=== PATIENT | female | born 1995 | race Caucasian/White ===

== ENCOUNTER → 2016-11-19 | Outpatient (CLI) | payer OTHER ==
[~2016-11-19] MED LIST: DOCU100C37 PO; HYDR-3454 PO; IBUP-1780 PO; OXYC-465 PO
[2016-11-19 10:28] LABS: PROTEIN/CREATININE RATIO 0.16
== END ==
LOC: LABNPT 10:04
PROVIDERS: ATTEND Obstetrics & Gynecology
DX: O28.8 Other abnormal findings on antenatal screening of mother (principal)
CPT/HCPCS: 82570; 84156

== ENCOUNTER 2016-11-20 06:55 | Inpatient (IN) | payer BC, OTHER ==
[2016-11-20] VITALS (52 sets, daily range): BP systolic 110–157; BP diastolic 58–96
[~2016-11-20] VITALS: Ht 160 cm; Wt 109.8 kg
[~2016-11-20 06:55] MED LIST changes: -DOCU100C37 PO; -IBUP-1780 PO; -OXYC-465 PO
[2016-11-20] MEDS ORDERED: OXYTOCIN/NORMAL SALINE 500 ML IV SCH ×2 (07:40→18:38)
--- NOTE | 2016-11-20 07:41 | OB Bishop Score ---
Zuleta Score 9 ENRICO LOCKE MD Nov 20, 2016 7:41 am
--- NOTE | 2016-11-20 07:45 | History & Physical ---
History and Physical Date Seen by Provider: Nov 20, 2016 Time Seen by Provider: 07:42 this patient is a 20-year-old G1 white female with an EDC of 6 1117/39-2/7 weeks ' gestation. She is admitted for elective induction of labor. She's had no problems with this . GBS culture was negative after 35 weeks gestation. She denies rupture membranes or bleeding. She is having occasional contractions that she feels. She feel baby moving. allergies are to penicillin based on a family history of penicillin. Patient reports she has never taken penicillin medications are vitamins Medical social and surgical histories are per the antepartum record HEENT exam is normal Neck is supple no lymphadenopathy no thyromegaly Abdomen is gravid soft nontender nondistended extremities show no clubbing or cyanosis. There is no Homans sign. Pelvic exam in clinic showed a cervix 3 cm dilated 70-80 percent effaced -1 station the cervix was soft and mid to anterior with a vertex presentation assessment and plan term at 39 weeks and 2 days admitted now for elective induction of labor. Cervix is favorable with a Zuleta score of 9. Expectation is for vaginal delivery although plans preparations are in place for if needed. Allergies and Home Medications Allergies Coded Allergies: No Known Drug Allergies (Unverified , 10/24/15) Home Medications Hydrocodone/Acetaminophen 1 Each Tablet, 1 EACH PO Q4H PRN for PAIN, #30 Prescribed by: CHACHA FITZGERALD on 10/25/15 1333 ENRICO LOCKE MD Nov 20, 2016 7:45 am
[2016-11-20 07:57] LABS: BASOPHILS % (AUTO) 0 % (0-10); EOSINOPHILS # (AUTO) 0.1 10^3/uL (0.0-0.3); EOSINOPHILS % (AUTO) 1 % (0-10); LYMPHOCYTES # (AUTO) 2.4 X 10^3 (1.0-4.0); LYMPHOCYTES % (AUTO) 19 % (12-44); MEAN CORPUSCULAR HEMOGLOBIN 26 PG (25-34); MEAN CORPUSCULAR HGB CONC 31 G/DL (32-36); MEAN CORPUSCULAR VOLUME 82 FL (80-99); MEAN PLATELET VOLUME 11.4 FL (7.4-10.4); MONOCYTES # (AUTO) 1.1 X 10^3 (0.0-1.0); MONOCYTES % (AUTO) 9 % (0-12); NEUTROPHILS # (AUTO) 8.8 X 10^3 (1.8-7.8); NEUTROPHILS % (AUTO) 71 % (42-75); PLATELET COUNT 227 10^3/uL (130-400); RED BLOOD COUNT 4.16 10^6/uL (4.35-5.85); RED CELL DISTRIBUTION WIDTH 14.7 % (10.0-14.5); WHITE BLOOD COUNT 12.4 10^3/uL (4.3-11.0)
[2016-11-20] MEDS: D5 LR IV SOLUTION 1,000 ML IV SCH ×3 (08:00→21:00)
[2016-11-20] MEDS ORDERED: SUFENTA 0.6MCG/ML BUPIVA 0.125 100 ML ONE (09:13)
[2016-11-20] MEDS ORDERED: BUPIVACAINE 0.25% 30 ML (SENSORCAINE) VIAL ONE (09:58)
[2016-11-20] MEDS ORDERED: fentaNYL INJECTION 100 MCG/2 ML AMP ONE (09:59)
[2016-11-20] MEDS ORDERED: LACTATED RINGERS 1,000 ML IV ONE (10:34)
[2016-11-20] MEDS ORDERED: diphenhydrAMINE 50 MG/ML INJ (BENADRYL) IV PRN (10:45)
[2016-11-20] MEDS ORDERED: METOCLOPRAMIDE INJ 10 MG/2 ML (REGLAN) IV PRN (10:45)
[2016-11-20] MEDS ORDERED: ONDANSETRON 4 MG/2 ML (SDV) Z0FRAN IV PRN (10:45)
[2016-11-20] MEDS ORDERED: NALOXONE 0.4 MG/ML 1 ML (NARCAN) VIAL IV PRN (10:45)
[2016-11-20] MEDS ORDERED: fentaNYL INJECTION 100 MCG/2 ML AMP INJ ONE (10:45)
[2016-11-20] MEDS ORDERED: EPIDURAL (SUFENTA 0.6MCG/ML BUPIVA 0.125%) 100 ML BAG EPI ONE (10:45)
[2016-11-20] MEDS ORDERED: LIDOCAINE/EPI 1%-1:200,000 (XYLOCAINE) 30 ML VIAL ONE (16:12)
[2016-11-20] MEDS ORDERED: LIDOCAINE/EPI 1%-1:200,000 (XYLOCAINE) 30 ML VIAL INJ ONE (18:11)
[2016-11-20] MEDS ORDERED: BENZOCAINE/MENTHOL (DERMOPLAST) 56 ML CAN TP PRN (18:45)
[2016-11-20] MEDS ORDERED: TETANUS,DIPTH,PERTUSS P/F (BOOSTRIX) 0.5 ML VIAL IM ONE (18:45)
[2016-11-20] MEDS ORDERED: MEASLES,MUMPS,RUBELLA 1 EA INJ SC ONE (18:45)
[2016-11-20] MEDS ORDERED: oxyCODONE/APAP 10/325MG (PERCOCET 10) TABLET PO PRN (18:45)
[2016-11-20] MEDS: KETOROLAC 30 MG/ML VIAL IV SCH (20:16)
--- NOTE | 2016-11-21 00:40 | OPERATIVE REPORT ---
DATE OF SERVICE: 11/20/2016 DELIVERY NOTE The patient delivered by term spontaneous vaginal delivery, a viable male with Apgars of 8 and 9 at 1 and 5 minutes. Expected weight was 8 pounds 7 ounces. time was 1813. Cord blood gas is pending. The patient delivered over a midline episiotomy that was performed after she had pushed about 10 times with the baby on the perineum and could not force it through. She requested episiotomy. Her bottom was anesthetized with local and episiotomy was performed. The baby delivered with the next push. The was bulb suctioned on delivery of the head and again on completion of delivery. The umbilical cord was doubly clamped when it was pulseless and the father cut the cord. Cord bloods were obtained. The placenta delivered spontaneously Schultze. It was normal with the 3-vessel cord. The cervix, vagina, rectum and perineum were examined and found intact except for the midline episiotomy and a small left sulcus laceration of approximately 2 cm. The repair was affected with a single suture of 3-0 Vicryl Rapide under the local analgesia. The repair was done in the usual manner without difficulty to good hemostasis and good reapproximation. Sponge and needle counts were correct on completion of the delivery and the repair. The patient tolerated the delivery and the repair very well. Blood loss was about 350 mL. Job ID: [id number] DocumentID: [id number] Dictated Date: 11/20/2016 18:44:02 White Mixing Operator Date: 11/20/2016 23:50:23 Dictated By: ENRICO LOCKE MD
[2016-11-21] MEDS: KETOROLAC 30 MG/ML VIAL IV SCH ×3 (02:02→13:53)
[2016-11-21 02:15] VITALS: BP 113/64
[2016-11-21 04:00] VITALS: BP 113/61
--- NOTE | 2016-11-21 07:37 | Progress Note-Standard ---
Standard Progress Note Progress Notes/Assess & Plan Date Seen by Provider: Nov 21, 2016 Time Seen by Provider: 07:36 Progress/Assessment & Plan patient is without complaint. She is ambulating, voiding, tolerating by mouth well, has good pain control, denies chest pain, denies nausea vomiting, denies headache, denies shortness of breath, and is requesting discharge. Vital Signs Date Time Temp Pulse Resp B/P (MAP) Pulse Ox O2 Delivery O2 Flow Rate FiO2 11/21/16 04:00 97.0 74 18 113/61 97 11/21/16 02:15 98.0 81 20 113/64 11/20/16 21:00 98.9 92 18 123/76 11/20/16 20:35 99.2 100 18 125/61 11/20/16 19:32 110 18 120/58 11/20/16 19:17 100.0 110 18 128/77 11/20/16 19:04 99.4 109 18 127/63 11/20/16 18:47 100 18 123/69 11/20/16 18:31 99.9 100 18 127/77 11/20/16 16:15 141 18 134/70 11/20/16 16:00 18 132/73 11/20/16 15:45 81 18 133/76 11/20/16 15:30 84 18 120/78 11/20/16 15:15 89 18 129/69 11/20/16 15:00 85 18 129/68 11/20/16 14:45 86 18 122/86 11/20/16 14:30 106 18 126/78 11/20/16 14:15 87 18 143/89 11/20/16 14:00 84 18 128/92 11/20/16 13:45 111 18 120/71 11/20/16 13:30 97.6 11/20/16 13:15 11/20/16 13:00 69 18 117/80 100 11/20/16 12:45 83 18 123/82 100 11/20/16 12:30 88 18 119/89 100 11/20/16 12:15 89 18 120/86 100 11/20/16 12:00 82 18 120/79 100 11/20/16 11:45 97.1 82 18 129/64 100 11/20/16 11:30 79 18 128/78 100 11/20/16 11:15 85 18 118/72 100 11/20/16 11:00 86 18 110/68 99 11/20/16 10:48 80 18 112/59 99 11/20/16 10:45 73 18 117/58 100 11/20/16 10:42 92 129/70 100 11/20/16 10:39 68 121/66 11/20/16 10:36 70 127/71 100 11/20/16 10:33 67 126/59 99 11/20/16 10:30 68 18 124/62 100 11/20/16 10:25 65 123/70 100 11/20/16 10:20 74 132/74 100 11/20/16 10:15 83 18 139/73 100 11/20/16 10:10 75 122/67 100 11/20/16 10:00 76 18 128/85 11/20/16 09:45 97.4 74 18 141/81 11/20/16 09:30 73 18 126/73 11/20/16 09:15 76 18 127/80 11/20/16 09:00 82 18 131/77 11/20/16 08:45 83 18 123/81 11/20/16 08:30 81 18 119/73 11/20/16 08:00 97.8 I & O 11/21/16 07:00 Intake Total 2000 ml Balance 2000 ml vital signs are stable. Patient is afebrile. Fundus is firm below the umbilicus and nontender. Extremities show no clubbing cyanosis. There is no Homans sign. There is some pretibial pitting edema that is normal. Assessment and plan day number 1 status post term spontaneous vaginal delivery doing well. Plan is routine convalescence care with discharge home when necessary patient request either today or tomorrow. Final Diagnosis T ENRICO NIEVES MD Nov 21, 2016 7:37 am
[2016-11-21] MEDS ORDERED: OXYC-465 PO (07:39)
[2016-11-21] MEDS ORDERED: IBUP-1780 PO (07:39)
[2016-11-21] MEDS ORDERED: DOCU100C37 PO (07:39)
--- NOTE | 2016-11-21 07:41 | Discharge Instructions ---
Discharge Instructions Discharge Medications New, Converted or Re-Newed RX: RX on Chart Patient Instructions Patient Instructions: as directed Return to The Hospital For: as directed Activity & Diet Discharge Diet: No Restrictions Activity as Tolerated: No Orders-Post D/C & Referrals Follow Up Appt: Call to make follow up appt. for patient in 4 weeks. Activity Per routine post vaginal delivery instructions. Please call in RX to patient pharmacy. Diet as tolerated Patient may shower or tub bathe as desired. ENRICO LOCKE MD Nov 21, 2016 7:41 am
[2016-11-21] MEDS: DOCUSATE SODIUM 100 MG (COLACE) CAP PO SCH ×3 (08:08→20:03)
[2016-11-21 08:55] VITALS: BP 109/65
--- NOTE | 2016-11-21 09:24 | Anesthesia-Regional Post-Op ---
Regional Patient Condition Mental Status: Alert, Oriented x3 Circulation: Same as Pre-Op Headache: Absent Sensation: Full Recovery Motor Block: Absent Post Op Complications Complications None Follow Up Care/Instructions Patient Instructions None needed. Anesthesia/Patient Condition Patient is doing well, no complaints, stable vital signs, no apparent adverse anesthesia problems. No complications reported per nursing. D/C home per [facility] [place] Criteria: No AVILA LINO CRNA Nov 21, 2016 09:24
[2016-11-21 12:55] VITALS: BP 107/67
[2016-11-21 16:50] VITALS: BP 120/72
[2016-11-21] MEDS ORDERED: TETANUS,DIPTH,PERTUSS P/F (BOOSTRIX) 0.5 ML VIAL IM ONE (16:54)
[2016-11-21] MEDS ORDERED: WITCH HAZEL(TUCKS) 40 EA JAR TOP PRN (19:00)
[2016-11-21] MEDS: IBUPROFEN 800 MG (MOTRIN) TAB PO SCH (20:03)
[2016-11-21 20:05] VITALS: BP 109/67
[2016-11-22 02:05] VITALS: BP 111/67
[2016-11-22] MEDS: IBUPROFEN 800 MG (MOTRIN) TAB PO SCH ×3 (02:05→14:15)
--- NOTE | 2016-11-22 06:42 | Progress Note-Standard ---
Standard Progress Note Progress Notes/Assess & Plan Date Seen by Provider: Nov 22, 2016 Time Seen by Provider: 06:41 Progress/Assessment & Plan patient is without complaint. She is ambulating, voiding, tolerating by mouth well, has good pain control, denies chest pain, denies nausea vomiting, denies headache, denies shortness of breath, and is requesting discharge. Vital Signs Date Time Temp Pulse Resp B/P (MAP) Pulse Ox O2 Delivery O2 Flow Rate FiO2 11/21/16 04:00 97.0 74 18 113/61 97 11/21/16 02:15 98.0 81 20 113/64 11/20/16 21:00 98.9 92 18 123/76 11/20/16 20:35 99.2 100 18 125/61 11/20/16 19:32 110 18 120/58 11/20/16 19:17 100.0 110 18 128/77 11/20/16 19:04 99.4 109 18 127/63 11/20/16 18:47 100 18 123/69 11/20/16 18:31 99.9 100 18 127/77 11/20/16 16:15 141 18 134/70 11/20/16 16:00 18 132/73 11/20/16 15:45 81 18 133/76 11/20/16 15:30 84 18 120/78 11/20/16 15:15 89 18 129/69 11/20/16 15:00 85 18 129/68 11/20/16 14:45 86 18 122/86 11/20/16 14:30 106 18 126/78 11/20/16 14:15 87 18 143/89 11/20/16 14:00 84 18 128/92 11/20/16 13:45 111 18 120/71 11/20/16 13:30 97.6 11/20/16 13:15 11/20/16 13:00 69 18 117/80 100 11/20/16 12:45 83 18 123/82 100 11/20/16 12:30 88 18 119/89 100 11/20/16 12:15 89 18 120/86 100 11/20/16 12:00 82 18 120/79 100 11/20/16 11:45 97.1 82 18 129/64 100 11/20/16 11:30 79 18 128/78 100 11/20/16 11:15 85 18 118/72 100 11/20/16 11:00 86 18 110/68 99 11/20/16 10:48 80 18 112/59 99 11/20/16 10:45 73 18 117/58 100 11/20/16 10:42 92 129/70 100 11/20/16 10:39 68 121/66 11/20/16 10:36 70 127/71 100 11/20/16 10:33 67 126/59 99 11/20/16 10:30 68 18 124/62 100 11/20/16 10:25 65 123/70 100 11/20/16 10:20 74 132/74 100 11/20/16 10:15 83 18 139/73 100 11/20/16 10:10 75 122/67 100 11/20/16 10:00 76 18 128/85 11/20/16 09:45 97.4 74 18 141/81 11/20/16 09:30 73 18 126/73 11/20/16 09:15 76 18 127/80 11/20/16 09:00 82 18 131/77 11/20/16 08:45 83 18 123/81 11/20/16 08:30 81 18 119/73 11/20/16 08:00 97.8 I & O 11/21/16 07:00 Intake Total 2000 ml Balance 2000 ml vital signs are stable. Patient is afebrile. Fundus is firm below the umbilicus and nontender. Extremities show no clubbing cyanosis. There is no Homans sign. There is some pretibial pitting edema that is normal. Assessment and plan day number 1 status post term spontaneous vaginal delivery doing well. Plan is routine convalescence care with discharge home when necessary patient request either today or tomorrow. November 22, 2016 Patient is without complaint. She is ambulating, voiding, tolerating by mouth, has no nausea vomiting, denies chest pain, denies shortness of breath, patient has good pain control and is requesting discharge home Vital Signs Date Time Temp Pulse Resp B/P (MAP) Pulse Ox O2 Delivery O2 Flow Rate FiO2 11/22/16 02:05 97.5 82 18 111/67 98 11/21/16 20:05 98.2 84 18 109/67 100 11/21/16 16:50 97.9 71 18 120/72 99 11/21/16 12:55 97.4 85 18 107/67 98 11/21/16 08:55 97.0 85 18 109/65 100 I & O 11/22/16 07:00 Intake Total 800 ml Balance 800 ml Vital signs are stable. Patient afebrile. Fundus is firm below the umbilicus and nontender. Extremities show no clubbing or cyanosis. There is no Homans sign. There is some pretibial pitting edema that is normal uric Assessment and plan day number 2 status post term spontaneous vaginal delivery doing well. Plan is for discharge home with follow-up in clinic Final Diagnosis term spontaneous vaginal delivery ENRICO LOCKE MD Nov 22, 2016 6:42 am
[2016-11-22] MEDS: DOCUSATE SODIUM 100 MG (COLACE) CAP PO SCH (08:01)
[2016-11-22 08:03] VITALS: BP 107/69
== END 2016-11-22 14:30 | disposition home or self-care (01) | DRG 775 ==
LOC: LDRP 06:55
PROVIDERS: ADMIT Obstetrics & Gynecology; ATTEND Obstetrics & Gynecology
PROC: 10E0XZZ Delivery of Products of Conception, External Approach (ICD-10-PCS; principal; 2016-11-20)
PROC: 0W8NXZZ Division of Female Perineum, External Approach (ICD-10-PCS; 2016-11-20)
DX: O80 Encounter for full-term uncomplicated delivery (principal); Z3A.39 39 weeks gestation of pregnancy; Z37.0 Single live birth; Z23 Encounter for immunization
CPT/HCPCS: 36415; 85025; 86850; 86900; 86901; 90715

== ENCOUNTER 2017-01-25 08:43 | Outpatient (CLI) | payer BC, OTHER ==
[~2017-01-25] VITALS: Ht 160 cm; Wt 106.6 kg
[~2017-01-25 08:43] MED LIST changes: +DOCU100C37 PO; +IBUP-1780 PO; +OXYC-465 PO
== END 2017-01-25 11:20 ==
LOC: PREOP 08:43
PROVIDERS: ATTEND Surgery
DX: Z01.818 Encounter for other preprocedural examination (principal); K62.5 Hemorrhage of anus and rectum; K62.89 Other specified diseases of anus and rectum

== ENCOUNTER 2017-01-28 12:48 | Day surgery (SDC) | payer BC, OTHER ==
[~2017-01-28] VITALS: Ht 160 cm; Wt 106.6 kg
[2017-01-28] MEDS ORDERED: ceFAZolin 1 GM/NS 50 ML IVPB IV ONE ×2 (13:15)
[2017-01-28] MEDS ORDERED: MIDAZOLAM 2 MG/2 ML (VERSED) VIAL ONE (13:27)
[2017-01-28] MEDS ORDERED: LIDOCAINE PF 2% 5 ML (XYLOCAINE) VIAL ONE (13:27)
[2017-01-28] MEDS ORDERED: proPOfol 200 MG/20 ML (DIPRIVAN) VIAL IV ONE (13:27)
[2017-01-28] MEDS ORDERED: LACTATED RINGERS 1,000 ML IV ONE (13:34)
[2017-01-28] MEDS ORDERED: BUP/EPI 0.5% 1:200,000 (MARCAINE) 10ML VIAL IJ ONE ×2 (13:35)
[2017-01-28] MEDS ORDERED: LACTATED RINGERS 1,000 ML IV PRN (14:00)
--- NOTE | 2017-01-28 14:01 | Progress Note-Pre Operative ---
Pre-Operative Progress Note H&P Reviewed The H&P was reviewed, patient examined and no changes noted. Date Seen by Provider: Jan 28, 2017 Time Seen by Provider: 14:00 Date H&P Reviewed: Jan 28, 2017 Time H&P Reviewed: 14:00 Pre-Operative Diagnosis: pERIANAN PAIN CHACHA FITZGERALD MD Jan 28, 2017 2:01 pm
[2017-01-28 14:03] VITALS: BP 112/66
--- NOTE | 2017-01-28 14:24 | Operative Report ---
Operative Report Date of Procedure/Surgery Jan 28, 2017 Surgeon (s) CHACHA FITZGERALD MD Chef Manager (s): not applicable Post-Operative Diagnosis anterior anal fissure Procedure Performed 1.examination under anesthetic 2. Rigid proctoscopy 3. Submucosal injection of local anesthetic Description of Procedure Anesthesia Type: MAC Estimated blood loss (mL): none Specimen(s) collected/removed none Description of the Procedure Indication for the procedure: This lady reported acute perianal pain for the past 2 months. To establish a definitive diagnosis and manage accordingly, examination under anesthetic was offered. Should an acute sharp be found, the possibility of submucosal injection with local anesthetic to relieve her immediate symptoms was discussed. Informed consent was obtained after reviewing the procedure in detail Description of procedure:She underwent mechanical bowel preparation the day before the procedure. She was placed in lithotomy position and our [employer] administered sedation. Examination confirmed an anterior anal fissure. Rigid proctoscopy up to 15 cm was unremarkable. 0.25 percent Marcaine with epinephrine was injected into the submucosal plane, just deep to the fissure to relieve the sphincter spasm. She tolerated the procedure well and was taken back to the nursing area in a stable condition Findings of the Procedure see operative report Allergies and Home Medications Allergies Coded Allergies: No Known Drug Allergies (Unverified , 10/24/15) Home Medications No Active Prescriptions or Reported Meds CHACHA FITZGERALD MD Jan 28, 2017 2:23 pm
--- NOTE | 2017-01-28 14:25 | Discharge Inst-Simple/Standard ---
Discharge Inst-Standard Discharge Medications New, Converted or Re-Newed RX: Transmitted to Pharmacy Patient Instructions/Follow Up Plan of Care/Instructions/FU: stool softeners. Please have the potato picker a prescription for nitroglycerin paste from [facility] pharmacy Activity as Tolerated: Yes Discharge Diet: No Restrictions CHACHA FITZGERALD MD Jan 28, 2017 2:25 pm
[2017-01-28] MEDS ORDERED: HYDROmorphone (DILAUDID) 2 MG/ML VIAL IVP PRN (14:30)
[2017-01-28] MEDS ORDERED: morphine INJ 10 MG/ML 1ML (SYR OR VIAL) IVP PRN (14:30)
[2017-01-28] MEDS ORDERED: MEPERIDINE (DEMEROL) INJ 50 MG/ML IVP PRN (14:30)
[2017-01-28] MEDS ORDERED: ONDANSETRON 4 MG/2 ML (SDV) Z0FRAN IVP PRN (14:30)
--- NOTE | 2017-01-28 14:34 | Discharge Inst-Simple/Standard ---
Discharge Inst-Standard Discharge Medications New, Converted or Re-Newed RX: RX Given to Pt/Family Patient Instructions/Follow Up Plan of Care/Instructions/FU: Pl have the pick up man a script for topical nitroglycerine from [facility]. Stool softeners. F/U in 3 weeks Activity as Tolerated: Yes Discharge Diet: No Restrictions CHACHA FITZGERALD MD Jan 28, 2017 2:34 pm
[2017-01-28 14:45] VITALS: BP 105/65
[2017-01-28 15:15] VITALS: BP 98/69
== END 2017-01-28 15:25 | disposition home or self-care (01) ==
LOC: SDC 12:48
PROVIDERS: ATTEND Surgery
DX: K60.2 Anal fissure, unspecified (principal)
CPT/HCPCS: 84703; 87081

== ENCOUNTER → 2021-10-16 | Outpatient (CLI) | payer BC ==
[~2021-10-16] MED LIST changes: -HYDR-3454 PO; +HYDR-3455 PO; -OXYC-465 PO; +OXYC-556 PO
[2021-10-16 13:14] LABS: BASOPHILS % (AUTO) 0 % (0-10); EOSINOPHILS # (AUTO) 0.1 10^3/uL (0.0-0.3); EOSINOPHILS % (AUTO) 0 % (0-10); HEMATOCRIT 30 % (35-52); HEMOGLOBIN 9.7 g/dL (11.5-16.0); LYMPHOCYTES # (AUTO) 1.8 10^3/uL (1.0-4.0); LYMPHOCYTES % (AUTO) 15 % (12-44); MEAN CORPUSCULAR HEMOGLOBIN 29 pg (25-34); MEAN CORPUSCULAR HGB CONC 32 g/dL (32-36); MEAN CORPUSCULAR VOLUME 89 fL (80-99); MEAN PLATELET VOLUME 10.3 fL (9.0-12.2); MONOCYTES # (AUTO) 0.8 10^3/uL (0.0-1.0); MONOCYTES % (AUTO) 7 % (0-12); NEUTROPHILS # (AUTO) 9.1 10^3/uL (1.8-7.8); NEUTROPHILS % (AUTO) 77 % (42-75); PLATELET COUNT 251 10^3/uL (130-400); WHITE BLOOD COUNT 11.9 10^3/uL (4.3-11.0)
== END ==
LOC: LABNPT 12:53
PROVIDERS: ATTEND Obstetrics & Gynecology
DX: Z34.83 Encounter for supervision of other normal pregnancy, third trimester (principal); Z23 Encounter for immunization; Z3A.00 Weeks of gestation of pregnancy not specified
CPT/HCPCS: 82950; 85025

== ENCOUNTER → 2021-10-30 | Outpatient (CLI) | payer BC | LOC: LABNPT 09:56 | PROVIDERS: ATTEND Obstetrics & Gynecology | DX: O14.93 Unspecified pre-eclampsia, third trimester (principal); Z3A.00 Weeks of gestation of pregnancy not specified | CPT/HCPCS: 82570; 84156 ==

== ENCOUNTER → 2021-11-27 | Outpatient (CLI) | payer BC | LOC: LABNPT 09:05 | PROVIDERS: ATTEND Obstetrics & Gynecology | DX: R80.9 Proteinuria, unspecified (principal) | CPT/HCPCS: 82570; 84156 ==

== ENCOUNTER → 2021-11-30 | Outpatient (CLI) | payer BC | LOC: LABNPT 09:49 | PROVIDERS: ATTEND Obstetrics & Gynecology | DX: R80.9 Proteinuria, unspecified (principal) | CPT/HCPCS: 82570; 84156 ==

== ENCOUNTER 2021-12-04 10:54 | Inpatient (IN) | payer BC ==
[2021-12-04] VITALS (9 sets, daily range): BP systolic 110–129; BP diastolic 63–77
[~2021-12-04] VITALS: Ht 160 cm; Wt 113.5 kg
[2021-12-04] MEDS ORDERED: D5 LR IV SOLUTION 1,000 ML IV SCH (11:30)
[2021-12-04 11:43] LABS: BASOPHILS % (AUTO) 0 % (0-10); EOSINOPHILS % (AUTO) 0 % (0-10); HEMATOCRIT 29 % (35-52); LYMPHOCYTES # (AUTO) 1.6 10^3/uL (1.0-4.0); LYMPHOCYTES % (AUTO) 14 % (12-44); MEAN CORPUSCULAR HEMOGLOBIN 25 pg (25-34); MEAN CORPUSCULAR HGB CONC 32 g/dL (32-36); MEAN CORPUSCULAR VOLUME 79 fL (80-99); MEAN PLATELET VOLUME 11.1 fL (9.0-12.2); MONOCYTES # (AUTO) 0.8 10^3/uL (0.0-1.0); MONOCYTES % (AUTO) 8 % (0-12); NEUTROPHILS # (AUTO) 8.8 10^3/uL (1.8-7.8); NEUTROPHILS % (AUTO) 78 % (42-75); PLATELET COUNT 227 10^3/uL (130-400); WHITE BLOOD COUNT 11.3 10^3/uL (4.3-11.0)
[2021-12-04 11:51] LABS: ALBUMIN 3.3 GM/DL (3.2-4.5); BILIRUBIN,TOTAL 0.4 MG/DL (0.1-1.0); CALCIUM 8.7 MG/DL (8.5-10.1); CREATININE SERUM 0.55 MG/DL (0.60-1.30); POTASSIUM 3.9 MMOL/L (3.6-5.0); TOTAL PROTEIN 6.6 GM/DL (6.4-8.2)
[2021-12-04] MEDS: BETAMETHASONE ACE/NA PHOS 6 MG/ML (CELESTONE SOLUSPAN) IM SCH (17:56)
--- NOTE | 2021-12-04 21:19 | History & Physical ---
History and Physical Date Seen by Provider: Dec 04, 2021 Time Seen by Provider: 15:30 This patient is a 26-year-old 2 para 1 female currently at 305-6/7 weeks gestation. She does have a dichorionic diamniotic twins. Patient was seen in clinic today with elevated blood pressure and with 2+ proteinuria. She has been followed last several weeks with gradually increasing blood pressures to the point now that she has PIH with third of preeclampsia. In addition she was ho with some regularity and was 5 cm in clinic. She was sent to labor and delivery for evaluation. Preeclampsia lab work performed on labor and delivery floor has been reassuring and those values are as follows Laboratory Tests Test 12/04/21 10:46 12/04/21 11:23 Range/Units Urine Protein 53 H 6-12 MG/DL Urine Creatinine 271 H 30-125 MG/DL Urine Protein/Creatinine Ratio 0.20 White Blood Count 11.3 H 4.3-11.0 10^3/uL Red Blood Count 3.61 L 3.80-5.11 10^6/uL Hemoglobin 9.0 L 11.5-16.0 g/dL Hematocrit 29 L 35-52 % Mean Corpuscular Volume 79 L 80-99 fL Mean Corpuscular Hemoglobin 25 25-34 pg Mean Corpuscular Hemoglobin Concent 32 32-36 g/dL Red Cell Distribution Width 14.7 H 10.0-14.5 % Platelet Count 227 130-400 10^3/uL Mean Platelet Volume 11.1 9.0-12.2 fL Immature Granulocyte % (Auto) 0 % Neutrophils (%) (Auto) 78 H 42-75 % Lymphocytes (%) (Auto) 14 12-44 % Monocytes (%) (Auto) 8 0-12 % Eosinophils (%) (Auto) 0 0-10 % Basophils (%) (Auto) 0 0-10 % Neutrophils # (Auto) 8.8 H 1.8-7.8 10^3/uL Lymphocytes # (Auto) 1.6 1.0-4.0 10^3/uL Monocytes # (Auto) 0.8 0.0-1.0 10^3/uL Eosinophils # (Auto) 0.0 0.0-0.3 10^3/uL Basophils # (Auto) 0.0 0.0-0.1 10^3/uL Immature Granulocyte # (Auto) 0.1 0.0-0.1 10^3/uL Sodium Level 136 135-145 MMOL/L Potassium Level 3.9 3.6-5.0 MMOL/L Chloride Level 108 H 98-107 MMOL/L Carbon Dioxide Level 18 L 21-32 MMOL/L Anion Gap 10 5-14 MMOL/L Blood Urea Nitrogen 6 L 7-18 MG/DL Creatinine 0.55 L 0.60-1.30 MG/DL Estimat Glomerular Filtration Rate 129 BUN/Creatinine Ratio 11 Glucose Level 85 70-105 MG/DL Uric Acid 3.0 2.6-7.2 MG/DL Calcium Level 8.7 8.5-10.1 MG/DL Corrected Calcium 9.3 8.5-10.1 MG/DL Total Bilirubin 0.4 0.1-1.0 MG/DL Aspartate Amino Transf (AST/SGOT) 11 5-34 U/L Alanine Aminotransferase (ALT/SGPT) 8 0-55 U/L Alkaline Phosphatase 110 40-136 U/L Lactate Dehydrogenase 107 L 125-220 U/L Total Protein 6.6 6.4-8.2 GM/DL Albumin 3.3 3.2-4.5 GM/DL Patient is GBS culture was reported negative Serial ultrasounds have demonstrated concordant growth with baby A on the order of 1/4 pound less than baby B. Ultrasound today confirmed both babies presentation Vertex both babies are known to be female Allergies are to penicillin Medications are vitamins and additional folic acid Medical social and surgical history is all per the antepartum record HEENT exam is normal Neck is supple no lymphadenopathy no thyromegaly Abdomen is gravid soft nontender nondistended Extremities show no clubbing or cyanosis. There is no Homans' sign. Pelvic exam and clinic visit as noted. Follow-up exam per the floor as noted in the nurse's notes. Lab work was reviewed andIs reassuring Assessment and plan 35-6/7-week twin gestation admitted for PIH/early preeclampsia and labor. Plan at this point is for betamethasone with plan to repeat in 24 hours as well as observation for progression in labor and/or for progression of her PIH. Consideration will be given to promoting delivery 24 hours after her second betamethasone unless spontaneous labor ensues prior to that 35-6/7 weeks gestation with dichorionic diamniotic twins/PIH/ labor Allergies and Home Medications Allergies Coded Allergies: Penicillins (Verified Allergy, Unknown, 12/04/21) Patient states she does not know what happens with PCN Patient Home Medication List Home Medication List Reviewed: Yes No Active Prescriptions or Reported Meds ENRICO LOCKE MD Dec 04, 2021 21:19
[2021-12-04] MEDS: D5 LR IV SOLUTION 1,000 ML IV SCH (22:23)
[2021-12-05 02:44] VITALS: BP 117/63
[2021-12-05] MEDS: D5 LR IV SOLUTION 1,000 ML IV SCH (04:54)
[2021-12-05 07:19] VITALS: BP 117/61
[2021-12-05 11:29] VITALS: BP 133/71
[2021-12-05 15:28] VITALS: BP 135/72
[2021-12-05] MEDS: BETAMETHASONE ACE/NA PHOS 6 MG/ML (CELESTONE SOLUSPAN) IM SCH (18:10)
[2021-12-05 19:52] VITALS: BP 123/72
[2021-12-06] VITALS (36 sets, daily range): BP systolic 91–132; BP diastolic 51–86
--- NOTE | 2021-12-06 03:06 | Progress Note ---
Standard Progress Note Progress Notes/Assess & Plan Date Seen by a Provider: Dec 05, 2021 Time Seen by a Provider: 08:00 Progress/Assessment & Plan This is a late entry for this patient who was seen at 8 AM on December 05, 2021 Patient is without complaint. She does feel occasional contractions she denies rupture membranes or bleeding.She continues to feel fairly intense pressure in the pelvis.Patient had received the first dose of betamethasone last evening and plan is to repeat that on the evening of December 05 with plans for delivery on December 06. VS - Last 72 Hours, by Label 12/04/21 12/04/21 12/04/21 12/04/21 11:35 11:38 11:55 13:00 Temp 36.6 Pulse 90 66 88 78 Resp 18 16 18 16 B/P (MAP) 118/77 (91) 116/75 (89) 116/77 (90) Pulse Ox 99 O2 Delivery Room Air Room Air Room Air Room Air 12/04/21 12/04/21 12/04/21 12/04/21 15:25 16:25 17:25 19:16 Temp 36.7 36.6 Pulse 73 74 77 85 Resp 18 18 18 18 B/P (MAP) 120/69 (86) 111/64 (80) 125/73 (90) 129/68 (88) Pulse Ox 99 O2 Delivery Room Air Room Air Room Air Room Air 12/04/21 12/05/21 12/05/21 12/05/21 22:17 02:44 07:19 11:29 Temp 36.8 36.6 36.8 36.6 Pulse 88 94 65 88 Resp 18 16 18 16 B/P (MAP) 110/63 (79) 117/63 (81) 117/61 (79) 133/71 (91) Pulse Ox 98 O2 Delivery Room Air Room Air Room Air Room Air 12/05/21 12/05/21 15:28 19:52 Temp 36.6 36.6 Pulse 93 82 Resp 16 20 B/P (MAP) 135/72 (93) 123/72 (89) Pulse Ox 100 O2 Delivery Room Air Room Air Blood pressures which have been quite elevated in clinic are markedly improved at bedrest. monitor shows category 1 heart rate pattern for each fetus with occasional contractions The abdomen is benign. Extremities show no clubbing or cyanosis. There is no Homans' sign. Pelvic exam on serial exams since admission patient has remainedDilated 5+ centimeters after having been 4 cm in clinic. Assessment and plan 36-week or very near 36-week twin gestation with labor and PIH/preeclampsia. Patient will receive her second dose of betamethasone on the evening of December 05 with plans for delivery on December 06 ENRICO LOCKE MD Dec 06, 2021 03:06
[2021-12-06] MEDS: D5 LR IV SOLUTION 1,000 ML IV SCH (06:32)
[2021-12-06] MEDS ORDERED: fentaNYL 2 mcg/ml BUPIVA 0.125 100 ML ONE (07:39)
[2021-12-06] MEDS ORDERED: D5 LR IV SOLUTION 1,000 ML IV SCH (08:00)
[2021-12-06] MEDS ORDERED: LIDOCAINE/EPI 1%-1:200,000 (XYLOCAINE) 30 ML VIAL INJ ONE (08:00)
[2021-12-06] MEDS ORDERED: fentaNYL INJ 100 MCG/2 ML AMP ONE (08:12)
[2021-12-06] MEDS ORDERED: BUPIVACAINE 0.25% 30 ML (SENSORCAINE) VIAL ONE (08:12)
--- NOTE | 2021-12-06 08:20 | Progress Note ---
Standard Progress Note Progress Notes/Assess & Plan Date Seen by a Provider: Dec 06, 2021 Time Seen by a Provider: 08:17 Progress/Assessment & Plan This is a late entry for this patient who was seen at 8 AM on December 05, 2021 Patient is without complaint. She does feel occasional contractions she denies rupture membranes or bleeding.She continues to feel fairly intense pressure in the pelvis.Patient had received the first dose of betamethasone last evening and plan is to repeat that on the evening of December 05 with plans for delivery on December 06. VS - Last 72 Hours, by Label 12/04/21 12/04/21 12/04/21 12/04/21 11:35 11:38 11:55 13:00 Temp 36.6 Pulse 90 66 88 78 Resp 18 16 18 16 B/P (MAP) 118/77 (91) 116/75 (89) 116/77 (90) Pulse Ox 99 O2 Delivery Room Air Room Air Room Air Room Air 12/04/21 12/04/21 12/04/21 12/04/21 15:25 16:25 17:25 19:16 Temp 36.7 36.6 Pulse 73 74 77 85 Resp 18 18 18 18 B/P (MAP) 120/69 (86) 111/64 (80) 125/73 (90) 129/68 (88) Pulse Ox 99 O2 Delivery Room Air Room Air Room Air Room Air 12/04/21 12/05/21 12/05/21 12/05/21 22:17 02:44 07:19 11:29 Temp 36.8 36.6 36.8 36.6 Pulse 88 94 65 88 Resp 18 16 18 16 B/P (MAP) 110/63 (79) 117/63 (81) 117/61 (79) 133/71 (91) Pulse Ox 98 O2 Delivery Room Air Room Air Room Air Room Air 12/05/21 12/05/21 15:28 19:52 Temp 36.6 36.6 Pulse 93 82 Resp 16 20 B/P (MAP) 135/72 (93) 123/72 (89) Pulse Ox 100 O2 Delivery Room Air Room Air Blood pressures which have been quite elevated in clinic are markedly improved at bedrest. monitor shows category 1 heart rate pattern for each fetus with occasional contractions The abdomen is benign. Extremities show no clubbing or cyanosis. There is no Homans' sign. Pelvic exam on serial exams since admission patient has remainedDilated 5+ centimeters after having been 4 cm in clinic. Assessment and plan 36-week or very near 36-week twin gestation with labor and PIH/preeclampsia. Patient will receive her second dose of betamethasone on the evening of December 05 with plans for delivery on December 06 December 06, 2021 Patient complains of regular persistent contractions and of increased pelvic pressure. She denies headache, denies rupture membranes, she does still feel both babies moving although states that it seems the movements are fairly markedly decreased. Vital Signs Date Time Temp Pulse Resp B/P (MAP) Pulse Ox O2 Delivery O2 Flow Rate FiO2 12/05/21 19:52 36.6 82 20 123/72 (89) 100 Room Air 12/05/21 15:28 36.6 93 16 135/72 (93) Room Air 12/05/21 11:29 36.6 88 16 133/71 (91) Room Air Blood pressures have been relatively stable they are starting to creep back up at this point. Abdomen is benign nontender fundal height is well above 46 cm Extremities show no clubbing cyanosis. There is no Homans' sign. Pelvic exam shows a cervix exam is dilated with a bulging bag for baby A. Amniotomy performed with release of straw-colored fluid. scalp electrode was applied monitor shows category 1 tracing for baby A and a Assessment and plan 36 weeks with dichorionic diamniotic twins with labor and advanced cer vical dilation as well as PIH/preeclampsia. Amniotomy has been performed patient is getting set up for an epidural now we anticipate vaginal delivery in the operating room under double set up with preparations for emergent should that be needed Final Diagnosis 36 weeks dichorionic diamnionic twins with labor and PIH/preeclampsia ENRICO LOCKE MD Dec 06, 2021 08:20
--- NOTE | 2021-12-06 08:23 | Discharge Inst-Surgical ---
Discharge Inst-Surgical Depart Medication/Instructions New, Converted or Re-Newed RX: Transmitted to Pharmacy Consults/Follow Up Patient Instructions: As directed Orders & Referrals Follow Up Appt: Call to make follow up appt. for patient in 4 weeks. Activity Per routine post vaginal delivery instructions. Prescriptions have been transmitted electronically to patient's pharmacy from my office for Percocet Motrin and Colace Diet as tolerated Patient may shower or tub bathe as desired. Activity Activity as Tolerated: No Diet Discharge Diet: No Restrictions ENRICO LOCKE MD Dec 06, 2021 08:23
[2021-12-06] MEDS ORDERED: OXYTOCIN PRE-MIX DRIP 500 ML IV PRN (10:45)
[2021-12-06] MEDS ORDERED: NALOXONE 0.4 MG/ML 1 ML (NARCAN) VIAL IV PRN (11:00)
[2021-12-06] MEDS ORDERED: diphenhydrAMINE 50 MG/ML INJ (BENADRYL) IV PRN (11:00)
[2021-12-06] MEDS ORDERED: LACTATED RINGERS 1,000 ML IV ONE (11:00)
[2021-12-06] MEDS ORDERED: ONDANSETRON 4 MG/2 ML (SDV) Z0FRAN IV PRN (11:00)
[2021-12-06] MEDS ORDERED: CATHETER FLUSH 10 ML SYR IV PRN (11:00)
[2021-12-06] MEDS ORDERED: fentaNYL 2 mcg/ml BUPIVA 0.125 100 ML IV SCH (11:00)
[2021-12-06] MEDS ORDERED: LIDOCAINE/EPI 2% 1:200,00 (XYLOCAINE) 10 ML VIAL ONE (12:14)
[2021-12-06] MEDS: CATHETER FLUSH 10 ML SYR IV SCH ×2 (14:00→20:49)
--- NOTE | 2021-12-06 14:20 | OB Labor & Delivery Record ---
Labor & Delivery This patient delivered twin viable female infants via spontaneous vaginal delivery in the operating room under double set up at 36 weeks gestation. Twin A is a female with weight 5 pounds 4 ounces Apgars of 8 and 9 and time of 1249. Twin B is a female weight of 5 pounds Apgars of 8 and 9 and a time of 1316. Twin A was delivered under epidural analgesia over a midline episiotomy was performed to shorten the second stage of labor due to twin gestation and the inherent increased risk with labor and delivery of twins. Delivery was accomplished promptly after the episiotomy was performed. The was bulb suctioned on delivery of the head again on completion of delivery. The umbilical cord was doubly clamped and the father cut the cord, the was then passed to the pediatric nurse in attendance with delivery. Drs. Myra Hardy were on hand for the twins. Twin B was assessed and was vertex and was just above the pelvic inlet. After twin B was stabilized by descending partially into the pelvic inlet Cord bloods for twin A were obtained. Which included an arterial blood gas and umbilical venous blood. Twin B was delivered under epidural analgesia over the same midline episiotomy. Timing of each baby as noted above stats are noted above as well. Baby B was bulb suctioned on delivery the head and again on completion of delivery. The umbilical cord was fairly promptly pulseless and was doubly clamped the father cut the cord and the baby passed to the pediatric nurse in attendance. Cord bloods for baby B were obtained including an umbilical artery blood gas and umbilical venous blood. Twin A placenta delivered now fairly promptly followed also probably by twin B's placenta. The placentas were clearly separate. The cervix vagina rectum perineum were examined and found intact except for the midline episiotomy which was now repaired with a single suture of 3-0 Vicryl repeat in the usual manner without difficulty to good hemostasis and good reapproximation. The patient tolerated delivery of both twins and repair well and was eventually transferred to the recovery room. Both infants have remained at bedside with mother both doing well. ENRICO LOCKE MD Dec 06, 2021 14:20
[2021-12-06] MEDS ORDERED: BENZOCAINE/MENTHOL (DERMOPLAST) 56 ML CAN TP PRN (15:00)
[2021-12-06] MEDS ORDERED: ONDANSETRON 4 MG/2 ML (SDV) Z0FRAN IVP PRN (15:00)
[2021-12-06] MEDS ORDERED: oxyCODONE/APAP 5/325MG (PERCOCET 5) TABLET PO PRN (15:00)
[2021-12-06] MEDS ORDERED: TETANUS,DIPTH,PERTUSS P/F (BOOSTRIX) 0.5 ML VIAL IM ONE (15:00)
[2021-12-06] MEDS: KETOROLAC 30 MG/ML VIAL IVP SCH ×2 (15:00→20:49)
[2021-12-06] MEDS ORDERED: OXYTOCIN PRE-MIX DRIP 500 ML IV SCH (15:00)
[2021-12-06] MEDS: DOCUSATE SODIUM 100 MG (COLACE) CAP PO SCH ×2 (20:25→20:46)
[2021-12-07] MEDS ORDERED: NALOXONE 0.4 MG/ML 1 ML (NARCAN) VIAL IV PRN (00:30)
[2021-12-07] MEDS ORDERED: WITCH HAZEL(TUCKS) 40 EA JAR TOP PRN (00:30)
[2021-12-07 04:00] VITALS: BP 111/56
[2021-12-07] MEDS: IBUPROFEN 800 MG (MOTRIN) TAB PO SCH ×4 (05:54→23:10)
--- NOTE | 2021-12-07 07:21 | Anesthesia-Regional Post-Op ---
Regional Patient Condition Mental Status: Alert, Oriented x3 Circulation: Same as Pre-Op Headache: Absent Sensation: Full Recovery Motor Block: Absent Post Op Complications Complications None Follow Up Care/Instructions Patient Instructions None needed. Anesthesia/Patient Condition Patient is doing well, no complaints, stable vital signs, no apparent adverse anesthesia problems. No complications reported per nursing. [place] home [place] [facility] [place] Criteria: Yes RIVKA STRATTON CRNA Dec 07, 2021 07:21
[2021-12-07] MEDS: DOCUSATE SODIUM 100 MG (COLACE) CAP PO SCH ×2 (09:56→23:10)
[2021-12-07 10:00] VITALS: BP 113/65
[2021-12-07] MEDS ORDERED: IBUPROFEN 800 MG (MOTRIN) TAB PO SCH (15:00)
[2021-12-07 17:31] VITALS: BP 116/61
[2021-12-07 23:10] VITALS: BP 102/59
[2021-12-08 05:50] VITALS: BP 115/60
[2021-12-08] MEDS: IBUPROFEN 800 MG (MOTRIN) TAB PO SCH ×3 (05:50→17:31)
[2021-12-08 08:19] VITALS: BP 118/69
--- NOTE | 2021-12-08 08:28 | Progress Note ---
Standard Progress Note Progress Notes/Assess & Plan Date Seen by a Provider: Dec 08, 2021 Time Seen by a Provider: 08:28 Progress/Assessment & Plan This is a late entry for this patient who was seen at 8 AM on December 05, 2021 Patient is without complaint. She does feel occasional contractions she denies rupture membranes or bleeding.She continues to feel fairly intense pressure in the pelvis.Patient had received the first dose of betamethasone last evening and plan is to repeat that on the evening of December 05 with plans for delivery on December 06. VS - Last 72 Hours, by Label 12/04/21 12/04/21 12/04/21 12/04/21 11:35 11:38 11:55 13:00 Temp 36.6 Pulse 90 66 88 78 Resp 18 16 18 16 B/P (MAP) 118/77 (91) 116/75 (89) 116/77 (90) Pulse Ox 99 O2 Delivery Room Air Room Air Room Air Room Air 12/04/21 12/04/21 12/04/21 12/04/21 15:25 16:25 17:25 19:16 Temp 36.7 36.6 Pulse 73 74 77 85 Resp 18 18 18 18 B/P (MAP) 120/69 (86) 111/64 (80) 125/73 (90) 129/68 (88) Pulse Ox 99 O2 Delivery Room Air Room Air Room Air Room Air 12/04/21 12/05/21 12/05/21 12/05/21 22:17 02:44 07:19 11:29 Temp 36.8 36.6 36.8 36.6 Pulse 88 94 65 88 Resp 18 16 18 16 B/P (MAP) 110/63 (79) 117/63 (81) 117/61 (79) 133/71 (91) Pulse Ox 98 O2 Delivery Room Air Room Air Room Air Room Air 12/05/21 12/05/21 15:28 19:52 Temp 36.6 36.6 Pulse 93 82 Resp 16 20 B/P (MAP) 135/72 (93) 123/72 (89) Pulse Ox 100 O2 Delivery Room Air Room Air Blood pressures which have been quite elevated in clinic are markedly improved at bedrest. monitor shows category 1 heart rate pattern for each fetus with occasional contractions The abdomen is benign. Extremities show no clubbing or cyanosis. There is no Homans' sign. Pelvic exam on serial exams since admission patient has remainedDilated 5+ centimeters after having been 4 cm in clinic. Assessment and plan 36-week or very near 36-week twin gestation with labor and PIH/preeclampsia. Patient will receive her second dose of betamethasone on the evening of December 05 with plans for delivery on December 06 December 06, 2021 Patient complains of regular persistent contractions and of increased pelvic pressure. She denies headache, denies rupture membranes, she does still feel both babies moving although states that it seems the movements are fairly markedly decreased. Vital Signs Date Time Temp Pulse Resp B/P (MAP) Pulse Ox O2 Delivery O2 Flow Rate FiO2 12/05/21 19:52 36.6 82 20 123/72 (89) 100 Room Air 12/05/21 15:28 36.6 93 16 135/72 (93) Room Air 12/05/21 11:29 36.6 88 16 133/71 (91) Room Air Blood pressures have been relatively stable they are starting to creep back up at this point. Abdomen is benign nontender fundal height is well above 46 cm Extremities show no clubbing cyanosis. There is no Homans' sign. Pelvic exam shows a cervix exam is dilated with a bulging bag for baby A. Amniotomy performed with release of straw-colored fluid. scalp electrode was applied monitor shows category 1 tracing for baby A and a Assessment and plan 36 weeks with dichorionic diamniotic twins with labor and advanced cer vical dilation as well as PIH/preeclampsia. Amniotomy has been performed patient is getting set up for an epidural now we anticipate vaginal delivery in the operating room under double set up with preparations for emergent should that be needed December 07, 2021 Patient is without complaint. She is ambulating, voiding, tolerating oral intake well and has good pain control. Her twins are doing well. Vital Signs Date Time Temp Pulse Resp B/P (MAP) Pulse Ox O2 Delivery O2 Flow Rate FiO2 12/07/21 04:00 36.6 85 18 111/56 (74) 98 Room Air 12/06/21 23:00 36.2 63 18 101/55 (70) 97 Room Air 12/06/21 19:50 36.5 69 18 110/56 (74) 97 Room Air 12/06/21 15:38 73 18 123/56 (78) Room Air 12/06/21 15:18 81 16 110/62 (78) Room Air 12/06/21 15:03 69 16 106/63 (77) Room Air 12/06/21 14:51 67 20 104/62 (76) Room Air 12/06/21 14:33 62 18 109/86 (94) Room Air 12/06/21 14:18 66 18 101/57 (72) Room Air 12/06/21 14:06 80 18 111/59 (76) Room Air 12/06/21 13:51 68 18 103/72 (82) Room Air 12/06/21 13:23 64 16 111/57 (75) Room Air 12/06/21 12:45 92 18 124/62 (82) Room Air 12/06/21 12:15 36.6 81 18 120/76 (91) 100 Room Air 12/06/21 12:00 69 18 108/76 (87) 100 Room Air 12/06/21 11:45 66 18 104/57 (73) 100 Room Air 12/06/21 11:30 63 18 106/63 (77) 100 Room Air 12/06/21 11:15 59 18 100/56 (71) 100 Room Air 12/06/21 11:00 78 18 91/54 (66) 100 Room Air 12/06/21 10:45 63 18 95/51 (66) 100 Room Air 12/06/21 10:30 64 16 92/54 (67) 100 Room Air 12/06/21 10:15 36.8 78 16 109/62 (78) 100 Room Air 12/06/21 10:00 80 18 110/72 (85) 99 Room Air 12/06/21 09:45 81 18 116/65 (82) 98 Room Air 12/06/21 09:30 64 18 121/72 (88) 98 Room Air 12/06/21 09:15 60 18 113/64 (80) 97 Room Air 12/06/21 09:03 68 18 114/61 (78) 99 Room Air 12/06/21 08:57 82 18 102/56 (71) 98 Room Air 12/06/21 08:49 80 18 115/67 (83) 99 Room Air 12/06/21 08:45 90 16 111/74 (86) 98 Room Air 12/06/21 08:43 92 16 109/63 (78) 98 Room Air 12/06/21 08:39 83 20 106/55 (72) 100 Room Air 12/06/21 08:35 68 18 117/61 (79) 100 Room Air 12/06/21 08:33 97 18 117/74 (88) 100 Room Air I & O 12/07/21 07:00 Intake Total 1500 ml Balance 1500 ml Vital signs are stable. Patient is afebrile. Her blood pressures are normalizing. The abdomen is benign. The fundus is firm below the umbilicus and nontender. Extremities show no clubbing or cyanosis. There is no Homans' sign. Pelvic exam is deferred Assessment and plan day status post 36-week delivery of twins doing well. Plan is for routine convalescent care 2021 See discharge summary Final Diagnosis 36-week vaginal delivery of twins ENRICO LOCKE MD Dec 08, 2021 08:28
--- NOTE | 2021-12-08 08:35 | Discharge Summary ---
Discharge Summary 36-week vaginal delivery of twins This patient is a 26-year-old 2 para 1 at the time of admission female patient who was admitted at 35-5/7 weeks gestation with PIH complicating a dichorionic diamniotic twin . In addition she was demonstrating labor. Patient was admitted onSaturday, December 04, 2021. Hydration spaced out her contractions. Her blood pressures improved at bedrest. Lab work was consistent with developing preeclampsia. She was given first dose of betamethasone 12 mg On Sunday, December 05, 2021 patient was stable she continues to contract off and on her cervix has been 4 cm in my clinic And had progressed to 5 cm by the time of evaluation On this date cervix was dilated between 5 and 6 cm. Patient was stable and in the ED received a second of betamethasone Monday, December 06, 2021 patient was dilated to 6 to 7 cm Amniotomy was performed patient continued to contract and her contractions increased somewhat By noon Patient was completely dilated, Patient was allowed an epidural. She was taken to the delivery room/operating room for delivery of twins under double set up with complete surgery crew and instrumentation for emergency as needed. Patient had vaginal delivery of both twins that were uneventful and the patient recovered uneventfully. On November patient was stable she is ambulating, voiding, tolerating oral intake and had good pain control. Her twins were doing well. Now on Wednesday, December 08, 2021 patient again is ambulating, voiding, tolerating oral intake well has good pain control. She is ready for discharge home. If he r baby is not discharged she will be allowed to remain in. Principal diagnosis for this hospitalization is 36-week delivery vaginally of twins Secondary diagnoses are dichorionic diamniotic twins, PIH, labor Patient was given appropriate discharge instructions verbally and in writing. Discharge medications were transmitted to her pharmacy from my clinic. Discharge medications included Percocet Motrin and ENRICO Root MD Dec 08, 2021 08:35
[2021-12-08] MEDS: DOCUSATE SODIUM 100 MG (COLACE) CAP PO SCH (15:41)
[2021-12-08 16:00] VITALS: BP 120/79
== END 2021-12-08 17:35 | disposition home or self-care (01) | DRG 805 ==
LOC: LDRP 10:54 → OBSVTOIN 12-06 07:15 → LDRP 12-06 16:24
PROVIDERS: ADMIT Obstetrics & Gynecology; ATTEND Obstetrics & Gynecology
PROC: 10E0XZZ Delivery of Products of Conception, External Approach (ICD-10-PCS; principal; 2021-12-06)
PROC: 0W8NXZZ Division of Female Perineum, External Approach (ICD-10-PCS; 2021-12-06)
DX: O30.043 Twin pregnancy, dichorionic/diamniotic, third trimester (principal); O60.14X1 Preterm labor third trimester with preterm delivery third trimester, fetus 1; Z37.2 Twins, both liveborn; O60.14X2 Preterm labor third trimester with preterm delivery third trimester, fetus 2; O13.4 Gestational [pregnancy-induced] hypertension without significant proteinuria, complicating childbirth; O14.94 Unspecified pre-eclampsia, complicating childbirth; Z3A.36 36 weeks gestation of pregnancy; Z88.0 Allergy status to penicillin
CPT/HCPCS: 36415; 80053; 82570; 83615; 84156; 84550; 85025; 86850; 86900; 86901; G0378

== ENCOUNTER → 2021-12-04 | Outpatient (CLI) | payer BC | LOC: LABNPT 09:50 | PROVIDERS: ATTEND Obstetrics & Gynecology | DX: R80.9 Proteinuria, unspecified (principal) | CPT/HCPCS: 82570; 84156 ==